=== PATIENT | female | born 2005 | race Caucasian/White ===

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

== ENCOUNTER 2024-04-12 09:21 | Emergency (ER) | payer OTHER ==
[~2024-04-12] VITALS: Ht 162.6 cm; Wt 49.9 kg
[~2024-04-12 09:21] MED LIST changes: +Flagyl500 MG PO
[2024-04-12 09:53] VITALS: BP 119/80
[2024-04-12] MEDS ORDERED: OXYC5 PO (10:08)
[2024-04-12] MEDS ORDERED: CLIN300 PO (10:08)
== END 2024-04-12 10:25 | disposition home or self-care (01) ==
LOC: ER 09:21
DX: K04.7 Periapical abscess without sinus (principal)
CPT/HCPCS: 99282

== ENCOUNTER → 2025-03-24 | Outpatient (CLI) | payer OTHER ==
[~2025-03-24] MED LIST changes: +CLIN300 PO; +OXYC5 PO
[2025-03-24 19:10] LABS: Bacterial Vaginosis PCR Negative (NEGATIVE); Candida Group, PCR NOT DETECTED (NOT DETECT); Candida glabrata-krusei, PCR NOT DETECTED (NOT DETECT)
== END ==
LOC: LAB SHORT 15:29 → LAB 15:29
PROVIDERS: Advanced Practice Midwife
DX: Z01.419 Encounter for gynecological examination (general) (routine) without abnormal findings (principal); N76.0 Acute vaginitis
CPT/HCPCS: 81515; G0145